=== PATIENT | female | born 1975 | race Two or more races ===

== ENCOUNTER 2018-02-04 13:03 | Emergency (ER) | payer MEDICAID, OTHER ==
[~2018-02-04] VITALS: Ht 157.5 cm; Wt 79.9 kg
[2018-02-04 13:44] VITALS: BP 106/70
[2018-02-04] MEDS ORDERED: SERT100T5 PO (15:34)
[2018-02-04] MEDS ORDERED: MELO15TA6 PO (15:34)
[2018-02-04] MEDS ORDERED: VALS1TAB28 PO (15:34)
[2018-02-04] MEDS ORDERED: DIPH25CA61 PO (15:34)
[2018-02-04] MEDS ORDERED: ASPIRIN 81 MG TABLET CHEW PO ONE (16:30)
== END 2018-02-04 16:06 | disposition home or self-care (01) ==
LOC: ED 16:00
DX: C92.10 Chronic myeloid leukemia, BCR/ABL-positive, not having achieved remission (principal); Z90.49 Acquired absence of other specified parts of digestive tract; Z76.0 Encounter for issue of repeat prescription
CPT/HCPCS: 99283

== ENCOUNTER 2018-02-07 20:21 | Inpatient (IN) | payer MEDICAID ==
[~2018-02-07] VITALS: Ht 157.5 cm; Wt 88.2 kg
[~2018-02-07 20:21] MED LIST: DIPH25CA61 PO; MELO15TA6 PO; SERT100T5 PO; VALS1TAB28 PO
[2018-02-07 21:13] LABS: ALBUMIN 3.2 g/dL (3.4-5.0); ANION GAP 10 mmol/L (5-15); CALCIUM 8.7 mg/dL (8.5-10.1); CHLORIDE 106 mmol/L (98-107); CREATININE 0.73 mg/dL (0.55-1.02)
[2018-02-07 21:28] LABS: MEAN CORPUSCULAR HEMOGLOBIN 27.3 pg (27.0-34.8); MEAN CORPUSCULAR VOLUME 85.1 fL (80-100); MEAN PLATELET VOLUME 8.6 fL (7.4-10.4); PLATELET COUNT 614 x10^3/uL (130-400); RED CELL DISTRIBUTION WIDTH 26.3 % (9.6-15.2)
[2018-02-07 21:43] LABS: MD YES
[2018-02-07 21:52] LABS: BAND#(MANUAL) 0.14 x10^3/uL; BANDS%(MANUAL) 1 % (0-7); BASOS#(MANUAL) 3.34 x10^3/uL (0-0.1); BASOS% (MANUAL) 24 % (0-1); EOS#(MANUAL) 1.39 x10^3/uL (0.0-0.4); EOS% (MANUAL) 10 % (1-7); LYMPH#(MANUAL) 1.95 x10^3/uL (1-3.4); LYMPHS% (MANUAL) 14 % (22-44); METAMYELOCYTES# (MANUAL) 0.14 x10^3/uL (0-0); METAMYELOCYTES% (MANUAL) 1 % (0-1); MONOS% (MANUAL) 5 % (2-9); MYELOCYTES# (MANUAL) 0.14 x10^3/uL (0-0); MYELOCYTES% (MANUAL) 1 % (0-0); NRBC % (MANUAL) 18 % (0-1); POLYCHROMASIA 1+; SEG#(MANUAL) 6.26 x10^3/uL (1.8-6.8); SEGS% (MANUAL) 45 % (42-75)
[2018-02-07 21:53] LABS: ANISOCYTOSIS 2+; BASOPHILLIC STIPPLING 1+; HYPOCHROMIA 1+; STOMATOCYTES 1+
[2018-02-07 21:54] LABS: <PLATELET ESTIMATE> INCREASED; HYPOGRAN PLTS 1+; LARGE PLATELETS 1+; OVALOCYTES 1+
[2018-02-07] MEDS ORDERED: OMNIPAQUE 350 MG/ML, 100ML BOTTLE ONE (22:47)
[2018-02-07] MEDS ORDERED: PIPERACILLIN/TAZO/PMX 3.375GM 50 ML ONE (23:39)
[2018-02-07] MEDS ORDERED: PHARMACOKINETIC CONSULTATION MC ONE (23:45)
[2018-02-08] MEDS ORDERED: VANCOMYCIN 1,700 MG in SODIUM CHLORIDE 0.9% 250 ML IV SCH
[2018-02-08] MEDS ORDERED: VANCOMYCIN PER PHARMACY IV ONE
[2018-02-08] MEDS ORDERED: PIPERACILLIN/TAZO/PMX 3.375GM 50 ML IVPB ONE
[2018-02-08] MEDS ORDERED: VANCOMYCIN 1,700 MG in SODIUM CHLORIDE 0.9% 250 ML IV ONE
[2018-02-08 00:08] LABS: MICROSCOPIC NOT IND
[2018-02-08 00:32] LABS: CULTURE INDICATED? NO
[2018-02-08 00:45] VITALS: BP 132/84
[2018-02-08 01:00] VITALS: BP 132/84
[2018-02-08] MEDS ORDERED: POLYETHYLENE GLYCOL 17 GM PACKET PO PRN (04:30)
[2018-02-08] MEDS ORDERED: morphine SULFATE 10 MG/ML, 1ML IVPush PRN (04:30)
[2018-02-08] MEDS ORDERED: BISACODYL 10 MG SUPP PR PRN (04:30)
[2018-02-08] MEDS ORDERED: PROMETHAZINE 25 MG/ML, 1ML IM PRN (04:30)
[2018-02-08] MEDS ORDERED: VANCOMYCIN PER PHARMACY MC PRN (04:30)
[2018-02-08] MEDS ORDERED: hydrALAzine 20 MG/ML, 1ML IVPush PRN (04:30)
[2018-02-08] MEDS ORDERED: DOCUSATE 100 MG CAPSULE PO PRN (04:30)
[2018-02-08] MEDS ORDERED: ONDANSETRON 2MG/ML, 2ML IVPush PRN (04:30)
[2018-02-08] MEDS: HEPARIN 5,000 UNITS/ML, 1ML SQ SCH ×3 (04:30→19:56)
[2018-02-08] MEDS: ONDANSETRON ODT 4 MG PO PRN ×3 (04:52→20:05)
[2018-02-08] MEDS: SODIUM CHLORIDE 0.9% 1,000 ML IV SCH ×3 (04:54→20:05)
[2018-02-08] MEDS: ACETAMINOPHEN 325 MG TABLET PO PRN (04:54)
[2018-02-08] MEDS: GUAIFENESIN 200 MG TABLET PO SCH ×2 (04:54→16:26)
[2018-02-08] MEDS ORDERED: PHARMACOKINETIC MONITORING MC PRN (05:00)
[2018-02-08 05:31] LABS: FREE T4 (FREE THYROXINE) 0.83 ng/dL (0.76-1.46); THYROID STIMULATING HORMONE 6.84 mIU/L (0.358-3.740)
[2018-02-08 05:43] LABS: HEMOGLOBIN A1C 4.6 % (4.2-6.3)
[2018-02-08] MEDS: PIPERACILLIN/TAZO/PMX 3.375GM 50 ML IV SCH ×3 (06:26→19:57)
[2018-02-08 07:43] VITALS: BP 114/73
[2018-02-08] MEDS ORDERED: IMATINIB 400 MG TABLET PO SCH (09:00)
[2018-02-08] MEDS: LACTOBACILLUS CHEW TABLET PO SCH ×3 (09:21→22:17)
[2018-02-08] MEDS: DOXYCYCLINE 100MG TABLET PO SCH ×2 (09:21→22:17)
[2018-02-08] MEDS: ALLOPURINOL 100 MG TABLET PO SCH ×2 (09:21→22:17)
[2018-02-08 12:34] VITALS: BP 130/83
[2018-02-08] MEDS: VANCOMYCIN 1,700 MG in SODIUM CHLORIDE 0.9% 250 ML IV SCH (13:15)
[2018-02-08] MEDS ORDERED: PHENOL THROAT SPRAY BOTTLE MM PRN (13:30)
[2018-02-08 17:56] VITALS: BP 114/73
[2018-02-08 20:00] VITALS: BP 114/73
[2018-02-09] MEDS: VANCOMYCIN 1,700 MG in SODIUM CHLORIDE 0.9% 250 ML IV SCH ×3 (00:38→23:52)
[2018-02-09] MEDS: ONDANSETRON ODT 4 MG PO PRN ×3 (00:38→22:29)
[2018-02-09 01:43] VITALS: BP 109/68
[2018-02-09] MEDS: PIPERACILLIN/TAZO/PMX 3.375GM 50 ML IV SCH ×4 (04:11→22:29)
[2018-02-09] MEDS: HEPARIN 5,000 UNITS/ML, 1ML SQ SCH ×3 (04:12→20:47)
[2018-02-09] MEDS: GUAIFENESIN 200 MG TABLET PO SCH ×2 (04:12→16:07)
[2018-02-09 05:36] LABS: ALBUMIN 2.8 g/dL (3.4-5.0); ANION GAP 8 mmol/L (5-15); CALCIUM 8.1 mg/dL (8.5-10.1); CHLORIDE 106 mmol/L (98-107)
[2018-02-09 05:40] LABS: ALANINE AMINOTRANSFERASE 17 U/L (12-78); ALKALINE PHOSPHATASE 138 U/L (45-117); BILIRUBIN,TOTAL 1.8 mg/dL (0.2-1.0); CHOL/HDL RATIO 2.9; CHOLESTEROL, TOTAL 103 mg/dL (140-239); HDL CHOL % 34 % (28-40); HDL CHOLESTEROL (DIRECT) 35 mg/dL (40-60); LDL CHOLESTEROL,CALCULATED 45 mg/dL (54-169); LDL/HDL RATIO 1.3 (0.5-3.0); TOTAL PROTEIN 6.8 g/dL (6.4-8.2); TRIGLYCERIDES 115 mg/dL (50-200); VLDL CHOLESTEROL 23 mg/dL (0-25)
[2018-02-09 06:51] LABS: MEAN PLATELET VOLUME 8.7 fL (7.4-10.4); PLATELET COUNT 668 x10^3/uL (130-400)
[2018-02-09 06:54] LABS: MD YES; MEAN CORPUSCULAR HEMOGLOBIN 27.1 pg (27.0-34.8); MEAN CORPUSCULAR HGB CONC 32.4 g/dL (32.4-35.8); MEAN CORPUSCULAR VOLUME 83.7 fL (80-100); RED BLOOD COUNT 2.88 x10^6/uL (3.82-5.3); RED CELL DISTRIBUTION WIDTH 24.1 % (9.6-15.2)
[2018-02-09 06:58] LABS: EOS#(MANUAL) 0.58 x10^3/uL (0.0-0.4); EOS% (MANUAL) 5 % (1-7); LYMPH#(MANUAL) 1.62 x10^3/uL (1-3.4); LYMPHS% (MANUAL) 14 % (22-44); METAMYELOCYTES# (MANUAL) 0.35 x10^3/uL (0-0); METAMYELOCYTES% (MANUAL) 3 % (0-1); MONOS#(MANUAL) 0.58 x10^3/uL (0.3-2.7); MONOS% (MANUAL) 5 % (2-9)
[2018-02-09 07:10] LABS: BASOS#(MANUAL) 2.32 x10^3/uL (0-0.1); BASOS% (MANUAL) 20 % (0-1)
[2018-02-09 07:11] LABS: MYELOCYTES% (MANUAL) 4 % (0-0); NRBC % (MANUAL) 29 % (0-1); PROGRANULOCYTES# (MANUAL) 0.12 x10^3/uL (0-0); PROGRANULOCYTES% (MANUAL) 1 % (0-0)
[2018-02-09 07:12] LABS: BAND#(MANUAL) 0.46 x10^3/uL; BANDS%(MANUAL) 4 % (0-7)
[2018-02-09 07:13] LABS: MYELOCYTES# (MANUAL) 0.46 x10^3/uL (0-0)
[2018-02-09 07:14] LABS: <PLATELET ESTIMATE> ADEQUATE; SEGS% (MANUAL) 44 % (42-75)
[2018-02-09 07:15] LABS: ANISOCYTOSIS 2+; HYPOCHROMIA 1+; POLYCHROMASIA 1+
[2018-02-09 07:16] LABS: OVALOCYTES 1+; STOMATOCYTES 2+
[2018-02-09 07:17] LABS: LARGE PLATELETS 1+
[2018-02-09 08:07] VITALS: BP 109/71
[2018-02-09] MEDS ORDERED: IMATINIB 100 MG TABLET PO SCH (09:00)
[2018-02-09] MEDS: ALLOPURINOL 100 MG TABLET PO SCH ×2 (09:44→20:46)
[2018-02-09] MEDS: LACTOBACILLUS CHEW TABLET PO SCH ×3 (09:44→20:46)
[2018-02-09] MEDS: DOXYCYCLINE 100MG TABLET PO SCH (09:44)
[2018-02-09 12:24] LABS: CLOSTRIDIUM DIFFICILE ANTIGEN NEGATIVE; CLOSTRIDIUM DIFFICILE TOXIN NEGATIVE (Negative)
[2018-02-09] MEDS: IMATINIB 100 MG TABLET PO SCH (15:32)
[2018-02-09 15:40] VITALS: BP 130/90
[2018-02-09 18:48] VITALS: BP 114/76
[2018-02-09] MEDS: ACETAMINOPHEN 325 MG TABLET PO PRN (20:56)
[2018-02-10 01:31] VITALS: BP 113/76
[2018-02-10] MEDS: PIPERACILLIN/TAZO/PMX 3.375GM 50 ML IV SCH ×2 (04:41→10:07)
[2018-02-10] MEDS: HEPARIN 5,000 UNITS/ML, 1ML SQ SCH ×3 (04:42→20:56)
[2018-02-10] MEDS: GUAIFENESIN 200 MG TABLET PO SCH ×2 (04:42→16:57)
[2018-02-10] MEDS: ALLOPURINOL 100 MG TABLET PO SCH ×2 (08:31→20:56)
[2018-02-10] MEDS: OXYcodone IR 5MG TABLET PO PRN ×3 (08:32→20:56)
[2018-02-10] MEDS: LACTOBACILLUS CHEW TABLET PO SCH ×3 (08:32→20:55)
[2018-02-10 09:42] VITALS: BP 123/86
[2018-02-10] MEDS: LEVOFLOXACIN 750 MG TABLET PO SCH (11:54)
[2018-02-10 13:47] VITALS: BP 120/80
[2018-02-10] MEDS: ONDANSETRON ODT 4 MG PO PRN ×2 (15:20→20:56)
[2018-02-10] MEDS: IMATINIB 100 MG TABLET PO SCH (15:22)
[2018-02-10 18:25] VITALS: BP 110/53
[2018-02-11] MEDS: ONDANSETRON ODT 4 MG PO PRN ×3 (01:00→13:18)
[2018-02-11 01:23] VITALS: BP 98/60
[2018-02-11] MEDS: GUAIFENESIN 200 MG TABLET PO SCH ×2 (04:17→16:38)
[2018-02-11] MEDS: HEPARIN 5,000 UNITS/ML, 1ML SQ SCH ×3 (04:18→20:54)
[2018-02-11] MEDS: LEVOFLOXACIN 750 MG TABLET PO SCH ×2 (08:22→09:22)
[2018-02-11] MEDS: LACTOBACILLUS CHEW TABLET PO SCH ×3 (08:22→20:52)
[2018-02-11] MEDS: ALLOPURINOL 100 MG TABLET PO SCH ×2 (08:22→20:52)
[2018-02-11 09:23] VITALS: BP 124/80
[2018-02-11 09:38] VITALS: BP 114/75
[2018-02-11 14:13] VITALS: BP 120/81
[2018-02-11] MEDS: IMATINIB 100 MG TABLET PO SCH (15:18)
[2018-02-11 19:09] VITALS: BP 114/78
[2018-02-12 00:23] VITALS: BP 112/73
[2018-02-12] MEDS: HEPARIN 5,000 UNITS/ML, 1ML SQ SCH ×3 (04:22→20:40)
[2018-02-12] MEDS: GUAIFENESIN 200 MG TABLET PO SCH ×2 (04:25→10:36)
[2018-02-12 06:22] VITALS: BP 110/74
[2018-02-12] MEDS: ACETAMINOPHEN 325 MG TABLET PO PRN ×2 (07:26→19:35)
[2018-02-12] MEDS: LEVOFLOXACIN 750 MG TABLET PO SCH (10:36)
[2018-02-12] MEDS: LACTOBACILLUS CHEW TABLET PO SCH ×3 (10:37→20:38)
[2018-02-12] MEDS: ALLOPURINOL 100 MG TABLET PO SCH ×2 (10:37→20:38)
[2018-02-12 13:26] VITALS: BP 123/80
[2018-02-12] MEDS: IMATINIB 100 MG TABLET PO SCH (15:02)
[2018-02-12] MEDS: ONDANSETRON ODT 4 MG PO PRN ×2 (15:05→21:28)
[2018-02-12 19:30] VITALS: BP 123/78
[2018-02-12 20:48] VITALS: BP 120/78
[2018-02-13 02:26] VITALS: BP 143/87
[2018-02-13] MEDS: ACETAMINOPHEN 325 MG TABLET PO PRN ×3 (02:55→22:03)
[2018-02-13] MEDS: GUAIFENESIN 200 MG TABLET PO SCH ×2 (04:52→15:47)
[2018-02-13] MEDS: HEPARIN 5,000 UNITS/ML, 1ML SQ SCH ×3 (04:54→22:04)
[2018-02-13 07:56] VITALS: BP 122/79
[2018-02-13] MEDS: LACTOBACILLUS CHEW TABLET PO SCH ×3 (10:29→22:03)
[2018-02-13] MEDS: ALLOPURINOL 100 MG TABLET PO SCH ×2 (10:30→22:03)
[2018-02-13] MEDS: LEVOFLOXACIN 750 MG TABLET PO SCH (10:30)
[2018-02-13] MEDS: ONDANSETRON ODT 4 MG PO PRN ×3 (10:40→22:03)
[2018-02-13 14:52] VITALS: BP 120/77
[2018-02-13] MEDS: IMATINIB 100 MG TABLET PO SCH ×2 (15:44→16:00)
[2018-02-13 19:38] VITALS: BP 109/70
[2018-02-14 01:38] VITALS: BP 102/66
[2018-02-14 04:30] LABS: ALBUMIN 2.6 g/dL (3.4-5.0); ANION GAP 6 mmol/L (5-15); CALCIUM 7.9 mg/dL (8.5-10.1); CHLORIDE 108 mmol/L (98-107); CREATININE 0.91 mg/dL (0.55-1.02)
[2018-02-14 04:48] LABS: MEAN CORPUSCULAR HEMOGLOBIN 26.7 pg (27.0-34.8); MEAN CORPUSCULAR HGB CONC 32.1 g/dL (32.4-35.8); MEAN CORPUSCULAR VOLUME 82.9 fL (80-100); PLATELET COUNT 877 x10^3/uL (130-400); RED BLOOD COUNT 2.91 x10^6/uL (3.82-5.3); RED CELL DISTRIBUTION WIDTH 24.3 % (9.6-15.2)
[2018-02-14 04:49] LABS: MD YES
[2018-02-14 05:03] LABS: BAND#(MANUAL) 3.27 x10^3/uL; BANDS%(MANUAL) 9 % (0-7); BASOS% (MANUAL) 8 % (0-1); EOS#(MANUAL) 1.09 x10^3/uL (0.0-0.4); EOS% (MANUAL) 3 % (1-7); LYMPH#(MANUAL) 4.36 x10^3/uL (1-3.4); LYMPHS% (MANUAL) 12 % (22-44); METAMYELOCYTES# (MANUAL) 1.09 x10^3/uL (0-0); METAMYELOCYTES% (MANUAL) 3 % (0-1); MONOS#(MANUAL) 1.45 x10^3/uL (0.3-2.7); MONOS% (MANUAL) 4 % (2-9); MYELOCYTES% (MANUAL) 8 % (0-0); NRBC % (MANUAL) 14 % (0-1); PROGRANULOCYTES# (MANUAL) 0.73 x10^3/uL (0-0); PROGRANULOCYTES% (MANUAL) 2 % (0-0); SEG#(MANUAL) 18.51 x10^3/uL (1.8-6.8); SEGS% (MANUAL) 51 % (42-75)
[2018-02-14 05:04] LABS: <PLATELET ESTIMATE> INCREASED; ANISOCYTOSIS 2+; HYPOCHROMIA 1+; OVALOCYTES 1+; POLYCHROMASIA 1+
[2018-02-14 05:05] LABS: MICROCYTOSIS 1+
[2018-02-14 05:06] LABS: LARGE PLATELETS 1+
[2018-02-14] MEDS: GUAIFENESIN 200 MG TABLET PO SCH ×2 (05:24→15:48)
[2018-02-14] MEDS: HEPARIN 5,000 UNITS/ML, 1ML SQ SCH ×3 (05:24→21:34)
[2018-02-14] MEDS: ACETAMINOPHEN 325 MG TABLET PO PRN ×3 (05:29→21:35)
[2018-02-14] MEDS: ONDANSETRON ODT 4 MG PO PRN ×3 (05:29→21:35)
[2018-02-14 08:53] VITALS: BP 98/62
[2018-02-14] MEDS: LACTOBACILLUS CHEW TABLET PO SCH ×3 (09:53→21:35)
[2018-02-14] MEDS: LEVOFLOXACIN 750 MG TABLET PO SCH (09:53)
[2018-02-14] MEDS: ALLOPURINOL 100 MG TABLET PO SCH ×2 (09:53→21:36)
[2018-02-14] MEDS: IMATINIB 100 MG TABLET PO SCH (16:36)
[2018-02-14 16:52] VITALS: BP 112/72
[2018-02-14 19:38] VITALS: BP 121/76
[2018-02-14] MEDS: DIPHENHYDRAMINE 25 MG CAPSULE PO PRN (21:35)
[2018-02-15 01:48] VITALS: BP 118/72
[2018-02-15] MEDS: ONDANSETRON ODT 4 MG PO PRN ×3 (04:51→21:32)
[2018-02-15] MEDS: GUAIFENESIN 200 MG TABLET PO SCH ×2 (04:51→16:13)
[2018-02-15] MEDS: HEPARIN 5,000 UNITS/ML, 1ML SQ SCH ×3 (05:32→21:33)
[2018-02-15 05:33] LABS: MD YES; MEAN CORPUSCULAR HGB CONC 32.2 g/dL (32.4-35.8); MEAN CORPUSCULAR VOLUME 83.8 fL (80-100); MEAN PLATELET VOLUME 7.8 fL (7.4-10.4); PLATELET COUNT 985 x10^3/uL (130-400); RED BLOOD COUNT 3.13 x10^6/uL (3.82-5.3); RED CELL DISTRIBUTION WIDTH 24.4 % (9.6-15.2)
[2018-02-15 05:37] LABS: BAND#(MANUAL) 10.77 x10^3/uL; BANDS%(MANUAL) 19 % (0-7); BASOS% (MANUAL) 3 % (0-1); EOS% (MANUAL) 3 % (1-7); LYMPH#(MANUAL) 7.94 x10^3/uL (1-3.4); LYMPHS% (MANUAL) 14 % (22-44); METAMYELOCYTES# (MANUAL) 14.18 x10^3/uL (0-0); METAMYELOCYTES% (MANUAL) 25 % (0-1); MYELOCYTES# (MANUAL) 6.24 x10^3/uL (0-0); MYELOCYTES% (MANUAL) 11 % (0-0); NRBC % (MANUAL) 5 % (0-1); SEG#(MANUAL) 14.18 x10^3/uL (1.8-6.8); SEGS% (MANUAL) 25 % (42-75)
[2018-02-15 05:51] LABS: ANISOCYTOSIS 2+; HYPOCHROMIA 1+; MICROCYTOSIS 1+; OVALOCYTES 1+
[2018-02-15 05:52] LABS: <PLATELET ESTIMATE> INCREASED; LARGE PLATELETS 1+; POLYCHROMASIA 1+
[2018-02-15] MEDS: LACTOBACILLUS CHEW TABLET PO SCH ×3 (08:23→21:32)
[2018-02-15] MEDS: ALLOPURINOL 100 MG TABLET PO SCH ×2 (08:23→21:32)
[2018-02-15] MEDS: LEVOFLOXACIN 750 MG TABLET PO SCH (08:24)
[2018-02-15] MEDS: ACETAMINOPHEN 325 MG TABLET PO PRN ×3 (08:24→21:32)
[2018-02-15 15:24] VITALS: BP 106/68
[2018-02-15] MEDS: IMATINIB 100 MG TABLET PO SCH (16:13)
[2018-02-15 19:46] VITALS: BP 113/73
[2018-02-15] MEDS: DIPHENHYDRAMINE 25 MG CAPSULE PO PRN (21:32)
[2018-02-16 01:23] VITALS: BP 108/72
[2018-02-16] MEDS: HEPARIN 5,000 UNITS/ML, 1ML SQ SCH (05:15)
[2018-02-16] MEDS: GUAIFENESIN 200 MG TABLET PO SCH (05:15)
[2018-02-16] MEDS: ONDANSETRON ODT 4 MG PO PRN ×2 (05:18→11:52)
[2018-02-16 05:39] LABS: MEAN CORPUSCULAR HEMOGLOBIN 26.8 pg (27.0-34.8); MEAN CORPUSCULAR HGB CONC 32.3 g/dL (32.4-35.8); MEAN CORPUSCULAR VOLUME 82.9 fL (80-100); MEAN PLATELET VOLUME 7.8 fL (7.4-10.4); PLATELET COUNT 948 x10^3/uL (130-400); RED BLOOD COUNT 3.25 x10^6/uL (3.82-5.3); RED CELL DISTRIBUTION WIDTH 23.2 % (9.6-15.2)
[2018-02-16 05:58] LABS: MD YES
[2018-02-16 06:08] LABS: ANISOCYTOSIS 2+; BANDS%(MANUAL) 28 % (0-7); EOS#(MANUAL) 2.15 x10^3/uL (0.0-0.4); EOS% (MANUAL) 3 % (1-7); LYMPH#(MANUAL) 5.74 x10^3/uL (1-3.4); LYMPHS% (MANUAL) 8 % (22-44); METAMYELOCYTES# (MANUAL) 5.74 x10^3/uL (0-0); METAMYELOCYTES% (MANUAL) 8 % (0-1); MICROCYTOSIS 1+; MONOS#(MANUAL) 2.15 x10^3/uL (0.3-2.7); MONOS% (MANUAL) 3 % (2-9); MYELOCYTES# (MANUAL) 9.33 x10^3/uL (0-0); MYELOCYTES% (MANUAL) 13 % (0-0); SEG#(MANUAL) 26.57 x10^3/uL (1.8-6.8); SEGS% (MANUAL) 37 % (42-75)
[2018-02-16 06:09] LABS: HYPOCHROMIA 1+; OVALOCYTES 1+; POLYCHROMASIA 1+
[2018-02-16 06:10] LABS: <PLATELET ESTIMATE> INCREASED; LARGE PLATELETS 1+; NRBC % (MANUAL) 5 % (0-1)
[2018-02-16 08:05] VITALS: BP 122/79
[2018-02-16] MEDS ORDERED: IMAT100T PO (08:37)
[2018-02-16] MEDS ORDERED: ALLO100T30 PO (08:37)
[2018-02-16] MEDS ORDERED: HYDR500C PO (08:37)
[2018-02-16] MEDS ORDERED: HYDROXYUREA 500 MG CAPSULE PO SCH ×2 (09:00→12:00)
[2018-02-16] MEDS: LACTOBACILLUS CHEW TABLET PO SCH (09:48)
[2018-02-16] MEDS: ALLOPURINOL 100 MG TABLET PO SCH (09:48)
== END 2018-02-16 13:33 | disposition home or self-care (01) | DRG 193 ==
LOC: ED 22:29 → EDIP 23:37 → 4WST 02-08 00:36 → 3NW 02-08 17:37 → DCLOUNGE 02-16 13:20
PROVIDERS: ADMIT Internal Medicine; ATTEND Internal Medicine
DX: J15.9 Unspecified bacterial pneumonia (principal); E88.3 Tumor lysis syndrome; E43 Unspecified severe protein-calorie malnutrition; C92.10 Chronic myeloid leukemia, BCR/ABL-positive, not having achieved remission; N39.0 Urinary tract infection, site not specified; F15.10 Other stimulant abuse, uncomplicated; R16.0 Hepatomegaly, not elsewhere classified; D63.0 Anemia in neoplastic disease; D47.3 Essential (hemorrhagic) thrombocythemia; F17.210 Nicotine dependence, cigarettes, uncomplicated; G47.00 Insomnia, unspecified; I10 Essential (primary) hypertension; J06.9 Acute upper respiratory infection, unspecified; Y95 Nosocomial condition; Z59.0 Homelessness; Z91.19 Patient's noncompliance with other medical treatment and regimen; Z92.21 Personal history of antineoplastic chemotherapy; Z90.49 Acquired absence of other specified parts of digestive tract; Z79.899 Other long term (current) drug therapy
CPT/HCPCS: 36415; 71045; 71046; 71275; 80048; 80053; 80061; 81003; 82040; 83036; 83605; 83735; 84145; 84439; 84443; 85025; 87040; 87324; 93005; 93306; 96365; 96375; J1644; J2543; J2550; J3370; Q0162; Q9967; J7030; J7050; Q0163

== ENCOUNTER 2019-01-17 11:29 | Emergency (ER) | payer MEDICAID ==
[~2019-01-17] VITALS: Ht 157.5 cm; Wt 88.7 kg
[~2019-01-17 11:29] MED LIST changes: +ALLO100T30 PO; +HYDR500C PO; +IMAT100T PO; +SERT100T32 PO; -SERT100T5 PO
[2019-01-17] MEDS ORDERED: SODIUM CHLORIDE FLUSH 10ML SYR IVF ONE (12:00)
[2019-01-17 12:23] LABS: INTERNATIONAL NORMALIZED RATIO 1.16 (0.93-1.1); PROTHROMBIN TIME 12.1 Seconds (9.6-11.5)
[2019-01-17 12:26] LABS: ALBUMIN 3.2 g/dL (3.4-5.0); ANION GAP 7 mmol/L (5-15); CALCIUM 8.1 mg/dL (8.5-10.1); CHLORIDE 104 mmol/L (98-107)
[2019-01-17 12:35] LABS: ALANINE AMINOTRANSFERASE 13 U/L (12-78); ALKALINE PHOSPHATASE 126 U/L (45-117); BILIRUBIN,TOTAL 0.8 mg/dL (0.2-1.0); CREATININE 0.88 mg/dL (0.55-1.02); TOTAL PROTEIN 7.4 g/dL (6.4-8.2)
--- NOTE | 2019-01-17 12:51 | NUR ---
BREAK RN: PT CURRENTLY RESTING ON GURNEY. NAD NOTED. SKIN PWD. RESP EVEN AND UNLABORED. PT DENIES PAIN/NEEDS AT THIS TIME. PT ON CONT BP, CARDIAC AND O2 MONITORS. CALL LIGHT WITHIN REACH. WILL CONT TO MONITOR PT.
[2019-01-17 13:04] LABS: MEAN CORPUSCULAR HEMOGLOBIN 31.2 pg (27.0-34.8); MEAN CORPUSCULAR VOLUME 80.8 fL (80-100); MEAN PLATELET VOLUME 9.2 fL (7.4-10.4); PLATELET COUNT 149 x10^3/uL (130-400); RED BLOOD COUNT 2.67 x10^6/uL (3.82-5.3); RED CELL DISTRIBUTION WIDTH 24.6 % (9.6-15.2)
[2019-01-17 13:05] LABS: MD YES
[2019-01-17 13:06] LABS: MEAN CORPUSCULAR HGB CONC 38.6 g/dL (32.4-35.8)
--- NOTE | 2019-01-17 13:10 | NUR ---
RECEIVED REPORT FROM OBDULIO AREVALO. PT RESTING ON [facility]. NICHOLAS. PT AWARE OF POC FOR ADMIT.
[2019-01-17 13:35] LABS: BAND#(MANUAL) 53.65 x10^3/uL; BANDS%(MANUAL) 12 % (0-7); EOS#(MANUAL) 17.88 x10^3/uL (0.0-0.4); EOS% (MANUAL) 4 % (1-7); LYMPH#(MANUAL) 4.47 x10^3/uL (1-3.4); LYMPHS% (MANUAL) 1 % (22-44); METAMYELOCYTES# (MANUAL) 13.41 x10^3/uL (0-0); METAMYELOCYTES% (MANUAL) 3 % (0-1); MONOS% (MANUAL) 7 % (2-9); MYELOCYTES# (MANUAL) 17.88 x10^3/uL (0-0); MYELOCYTES% (MANUAL) 4 % (0-0); PROGRANULOCYTES# (MANUAL) 4.47 x10^3/uL (0-0); PROGRANULOCYTES% (MANUAL) 1 % (0-0); SEG#(MANUAL) 80.48 x10^3/uL (1.8-6.8); SEGS% (MANUAL) 18 % (42-75)
[2019-01-17 13:36] LABS: BLASTS # (MANUAL) 223.55 x10^3/uL (0-0); NRBC % (MANUAL) 12 % (0-1)
[2019-01-17 13:53] LABS: ANISOCYTOSIS 2+; MICROCYTOSIS 1+
[2019-01-17 13:54] LABS: <PLATELET ESTIMATE> ADEQUATE; HYPOGRAN PLTS 1+; POLYCHROMASIA 1+
[2019-01-17 14:03] LABS: BLASTS % (MANUAL) 50 % (0-0)
--- NOTE | 2019-01-17 15:00 | NUR ---
PT RESTING ON GURNEY. NADN. LO.
--- NOTE | 2019-01-17 15:14 | NUR ---
PT TAKEN TO IR.
--- NOTE | 2019-01-17 15:50 | NUR ---
PT BACK FROM [facility]. RESTING ON [facility]. NADN. CAS.
--- NOTE | 2019-01-17 16:27 | NUR ---
SPOKE WITH JAYCEE AT [facility]. PER JAYCEE PT DOES NOT MEET THEIR PROTOCOL. STATES IF BLS OR ACLS REQUIRED OTHER THAN LEGAL 2000 DOES NOT MEET PROTOCOL
--- NOTE | 2019-01-17 16:59 | NUR ---
REPORT GIVEN TO RICARDA, RECEIVING RN AT [facility]. ALL QUESTIONS ANSWERED. AWAITING PT TRANSPORT TO [facility].
[2019-01-17 17:07] VITALS: BP 123/66
--- NOTE | 2019-01-17 17:07 | NUR ---
PT SLEEPING ON BLACK. NADN. LO.
--- NOTE | 2019-01-17 17:13 | NUR ---
REPORT GIVEN TO [facility].
== END 2019-01-17 17:24 | disposition short-term general hospital (02) ==
LOC: ED 12:25
DX: R06.00 Dyspnea, unspecified (principal); D58.8 Other specified hereditary hemolytic anemias; C92.10 Chronic myeloid leukemia, BCR/ABL-positive, not having achieved remission; Z90.49 Acquired absence of other specified parts of digestive tract; I10 Essential (primary) hypertension
CPT/HCPCS: 36415; 36556; 71045; 76937; 77001; 80053; 83615; 83735; 83880; 84100; 84550; 84703; 85025; 85610; 86850; 86900; 93005; 99291; C1751; C1894; J1642

== ENCOUNTER 2019-09-15 17:22 | Emergency (ER) | payer MEDICAID ==
[~2019-09-15] VITALS: Ht 154.9 cm; Wt 83.0 kg
[2019-09-15 17:30] VITALS: BP 141/95
== END 2019-09-15 18:06 | disposition home or self-care (01) ==
LOC: ED 18:00
DX: Z85.6 Personal history of leukemia (principal); Z76.0 Encounter for issue of repeat prescription; I10 Essential (primary) hypertension; F17.210 Nicotine dependence, cigarettes, uncomplicated; Z90.49 Acquired absence of other specified parts of digestive tract
CPT/HCPCS: 99283; 99406